=== PATIENT | female | born 1945 | race Hispanic/Latino ===

== ENCOUNTER 2022-10-04 15:09 | Emergency (ER) | payer MEDICARE ==
[2022-10-04] MEDS ORDERED: Nitroglycerin 50 MG/250 ML BOT 250 ML ONE (15:20)
[2022-10-04] MEDS ORDERED: Furosemide 20 MG/2 ML VIAL ONE (15:30)
[2022-10-04 15:53] LABS: Hemoglobin 10.2 g/dL (12.0-16.0); Mean Corpuscular HGB CONC 30.1 g/dL (32.0-36.0); Mean Corpuscular Hemoglobin 26.5 pg (27.0-31.0); Mean Corpuscular Volume 88.3 fl (78.0-98.0); Mean Platelet Volume 7.9 fL (7.4-10.4); Platelet Count 384 10x3/uL (130-400); RBC Distribution Width 16.8 % (11.5-14.5); Red Blood Cell (RBC) Count 3.85 mill/uL (4.20-5.40); White Blood Cell (WBC) Count 15.2 10x3/uL (4.8-10.8)
[2022-10-04 15:54] LABS: Anisocytosis SLIGHT = 6-15 cells (100X) (0-5/hpf); Band 16 % (5-11); Hypochromia SLIGHT = 6-15 cells (100X) (0-5/hpf); Lymphocytes 2 % (21-51); MDiff Complete? YES; Monocytes 2 % (0-10); Neutrophil 80 % (42-75); Platelet Adequacy Comment Appears Adequate
[2022-10-04 16:00] LABS: ALT (SGPT) 185 U/L (8-55); AST (SGOT) 410 U/L (5-34); Albumin 2.7 g/dL (3.4-4.8); Alkaline Phosphatase 755 U/L (40-110); Anion Gap 15 mmol/L (10-20); BUN (Urea Nitrogen) 53 mg/dL (9.8-20.1); Bilirubin, Total 1.6 mg/dL (0.2-1.2); Calc. Creatinine Clearance 0 mL/min (70-130); Calcium 9.4 mg/dL (7.8-10.44); Carbon Dioxide 27 mmol/L (23-31); Chloride 101 mmol/L (98-107); Estimated GFR 36; Globulin 4.6 g/dL (2.4-3.5); Glucose 114 mg/dL (83-110); Potassium 4.1 mmol/L (3.5-5.1); Protein, Total 7.3 g/dL (5.8-8.1); Sodium 139 mmol/L (136-145)
[2022-10-04 16:09] LABS: INR-International Normal Ratio 2.9; PTT 34.9 sec (22.9-36.1); Prothrombin Time 31.3 sec (12.0-14.7)
[2022-10-04 16:33] LABS: SARS-CoV-2 NAA Rapid Test Not Detected (NotDetected)
[2022-10-04] MEDS ORDERED: Sodium Chloride 0.9% 250 ML 250 ML ONE (16:56)
[2022-10-04] MEDS ORDERED: Vancomycin 1 GM VIAL ONE (16:56)
[2022-10-04] MEDS ORDERED: cefTRIAXone (ROCEPHIN) 1 GM VIAL ONE (16:56)
[2022-10-04] MEDS ORDERED: Sodium Chloride 0.9% 100 ML ONE (16:56)
[2022-10-04] MEDS ORDERED: Nitroglycerin 2% Ointment 1 INCH/1 GM Packet ONE (16:59)
[2022-10-04 17:00] LABS: Bilirubin Negative (Negative); Blood, Urine Large (Negative); Clarity Slightly Cloudy (Clear); Glucose, Urine (Dipstick) Negative (Negative); Ketone, Urine Negative (Negative); Leukocyte Trace (Negative); Nitrite Negative (Negative); Protein, Urine (Dipstick) 100 mg/dL (Neg-Trace); Urobilinogen 0.2 mg/dL (Less than 2); pH, Urine 5.5 (5.0-9.0)
[2022-10-04 17:01] LABS: CAUTI Indications for Culture Dysuria,urgency,freq
[2022-10-04 17:12] LABS: Bacteria/HPF 4+ HPF (None Seen); Squamous Epithelial 0-3 HPF (0-3); WBC/HPF 21-50 HPF (0-3)
[2022-10-04 17:13] LABS: Urine Culture Reflex Yes Yes
[2022-10-04] MEDS ORDERED: Aspirin 325 MG TAB ONE (17:42)
== END 2022-10-04 18:25 | disposition short-term general hospital (02) ==
LOC: MADERS 15:09
DX: I50.9 Heart failure, unspecified (principal); A41.9 Sepsis, unspecified organism; I11.0 Hypertensive heart disease with heart failure; I25.10 Atherosclerotic heart disease of native coronary artery without angina pectoris; K21.9 Gastro-esophageal reflux disease without esophagitis; E78.00 Pure hypercholesterolemia, unspecified; E66.9 Obesity, unspecified; Z79.01 Long term (current) use of anticoagulants
CPT/HCPCS: 51702; 71045; 80053; 81001; 82553; 83605; 83880; 84484; 85025; 85610; 85730; 87040; 87077; 87086; 87149; 87186; 93005; 94660; 94760; 96365; 96374; 96375; J0696; J1940; J3370; J3490; J7050